=== PATIENT | male | born 1975 | race Caucasian/White ===

== ENCOUNTER 2017-05-14 18:43 | Emergency (ER) | payer OTHER ==
[~2017-05-14] VITALS: Ht 180.3 cm; Wt 80.0 kg
[2017-05-14 19:00] VITALS: BP 161/93; PULSE 91; RESP 16; TEMP 98.3; O2SAT 98
--- NOTE | 2017-05-14 19:15 | PD ---
HPI Chief Complaint: ACT Time Seen by Provider: 19:12 Travel History International Travel<30 days: No Contact w/Intl Traveler<30days: No Traveled to known affect area: No History of Present Illness HPI 22-year-old male presents under initially by the police department. According to his paperwork the patient was found intoxicated walking around moving vehicles. The patient endorses alcohol use tonight at a bar called "[facility]. He denies any medical complaints at this time. He denies any illicit drug use. Symptoms are aggravated by alcohol intoxication. No alleviating factors. No other complaints. [facility] Social History Alcohol Use: Yes Tobacco Use: No Allergies-Medications (Allergen,Severity, Reaction): Coded Allergies: No Known Allergies (Unverified , 05/14/17) Reported Meds & Prescriptions Reported Meds & Active Scripts Active No Active Prescriptions or Reported Medications Review of Systems ROS Limitations: Intoxication Except as stated in HPI: all other systems reviewed are Neg Physical Exam Exam Limitations: Intoxication Narrative GENERAL: Well-nourished male in no acute distress. He is ambulatory here in the ED. SKIN: Warm and dry. HEAD: Atraumatic. Normocephalic. EYES: Pupils equal and round. No scleral icterus. No injection or drainage. ENT: No nasal bleeding or discharge. Mucous membranes pink and moist. NECK: Trachea midline. No JVD. CARDIOVASCULAR: Regular rate and rhythm. No murmur appreciated. RESPIRATORY: No accessory muscle use. Clear to auscultation. Breath sounds equal bilaterally. GASTROINTESTINAL: Abdomen soft, non-tender, nondistended. Hepatic and splenic margins not palpable. MUSCULOSKELETAL: No obvious deformities. No clubbing. No cyanosis. No edema. NEUROLOGICAL: Awake and alert. No obvious cranial nerve deficits. Motor grossly within normal limits. Slurred speech with a steady gait. Data Data Last Documented VS Vital Signs Date Time Temp Pulse Resp B/P (MAP) Pulse Ox O2 Delivery O2 Flow Rate FiO2 05/14/17 19:00 98.3 91 16 161/93 (115) 98 Orders Orders ^ Sitter (05/14/17 19:17) [facility] Medical Decision Making Medical Screen Exam Complete: Yes Emergency Medical Condition: Yes Medical Record Reviewed: Yes Differential Diagnosis Alcohol intoxication, polysubstance abuse, closed head injury Narrative Course 42-year-old male presents under [place] act for evaluation of alcohol intoxication. The patient has slurred speech but he has a steady gait. The patient will remain here until he is clinically sober or until he is able to obtain a ride from a family member home. Diagnosis Primary Impression: Alcohol intoxication Qualified Codes: F10.920 - Alcohol use, unspecified with intoxication, uncomplicated Med/Other Pt SpecificInfo: No Change to Meds Scripts No Active Prescriptions or Reported Meds Disposition: 01 DISCHARGE HOME Condition: Stable Edward Gonzáles May 14, 2017 19:15
== END 2017-05-14 20:57 | disposition home or self-care (01) ==
LOC: NEPD 18:43
DX: F10.129 Alcohol abuse with intoxication, unspecified (principal)
CPT/HCPCS: 99283